=== PATIENT | male | born 1955 | race African-American/Black ===

== ENCOUNTER 2018-07-06 22:22 | Emergency (ER) | payer MEDICARE, SELFPAY ==
[2018-07-06 22:23] VITALS: BP 201/86; PULSE 69; RESP 16; TEMP 37.3; O2SAT 93; BMI 47.9
--- NOTE | 2018-07-06 22:37 | CT_ITS ---
STUDY: CT ABDOMEN AND PELVIS WITHOUT CONTRAST REASON FOR EXAM: Male, 62 years old. Flank pain RADIATION DOSAGE (If Supplied By Facility): CTDIvol = ( 24.18 ) mGy, DLP = ( 1280.61 ) mGycm TECHNIQUE: Transaxial images were obtained from the dome of the diaphragm to the symphysis pubis without oral contrast, and without intravenous contrast. Sagittal and coronal images were reconstructed. Individualized dose optimization techniques were used for this CT. COMPARISON: None. FINDINGS: Evaluation limited by lack of IV and oral contrast material. Atelectasis/scarring within the lungs. Calcified mediastinal structures likely prior granulomatous disease. Coronary artery calcifications are noted. Tiny pericardial effusion. Multiple calcifications within the liver nonspecific however likely prior granulomatous disease. There is no significant intrahepatic ductal dilatation identified. Otherwise the unenhanced liver appears grossly unremarkable. The gallbladder is contracted. There are multiple benign calcified granulomata of the spleen. Normal pancreas. Normal bilateral adrenal glands. Renal punctate calcification thought to be vascular in origin. No hydronephrosis identified. Normal visualized stomach. Normal small intestine. There are multiple colonic diverticula consistent with diverticulosis. The appendix is visualized and appears normal. There is diffuse atherosclerotic calcification of the abdominal aorta, without a demonstrated aneurysm. Cannot evaluate for dissection due to lack of IV contrast material. Nonspecific subcentimeter short axis mesenteric and retroperitoneal lymph nodes. Limited evaluation within the pelvis by streak artifact. The bladder does not appear distended. Bilateral fat-containing small inguinal hernias. There are diffuse degenerative changes of the visualized lumbar spine. Bilateral hip arthroplasties cause streak artifact within the pelvis. CT/Abdomen/Pelvis without Cont IMPRESSION: Diverticulosis without definitive CT evidence for diverticulitis. No hydronephrosis or nephrolithiasis. Evidence of prior granulomatous disease. Tiny pericardial effusion. Electronically Signed: Trace Salguero, at 23:25 EDT Tel , Service support ,
--- NOTE | 2018-07-06 22:50 | ED.DCSUM_ITS ---
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 Patient has a hard time recounting details even when asked direct questions. 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 Pain started in his back earlier today, later he started vomiting and is states that he is vomiting bile. Patient denies having any abdominal pain at all. He denies any pain radiating into his lower extremities. He is on Percocet and baclofen, he has chronic pain but the states you will have to ask him where it is. He states his chronic pain is mostly in his hips, when asked if it is in his back he states no not until today. He denies any thoracic symptoms. No known history of kidney stones. He does not give a straight answer when trying to assess whether his pain is lateralizing or not. He has had no syncopal episodes since this started. No known history of AAA. - Past Medical History (1) CVA (cerebral vascular accident) Status: Chronic (2) ICH (intracerebral hemorrhage) Status: Chronic (3) Hyperlipidemia Status: Chronic (4) Hypertension Status: Chronic (5) Osteoarthritis of right hip Status: Chronic Past Medical History - Allergies and Home Meds Allergies/Adverse Reactions: Allergies ibuprofen Allergy (Verified 07/06/18 22:29) Other NSAIDS (Non-Steroidal Anti-Inflamma Allergy (Verified 07/06/18 22:29) Unknown Primary Care Physician: NOT,DEFINED [NON-STAFF] - Surgical History: total hip arthroplasty - Right 11/17, left 06/17, tonsillectomy Lives: Spouse/ Significant Other Smoking Status: Former smoker - Family History Paternal Family History: Reports: Cancer - age 60 liver Maternal Family History: Reports: No pertinent history - alive age 75 Review of Systems ROS: Unable to Obtain - very limited eval due to stroke, one-word answers General: Denies: Chills, Fever Cardiovascular: Denies: Chest pain, Palpitations Respiratory: Denies: Dyspnea, Cough Gastrointestinal: Reports: Nausea, Vomiting. Denies: Abdominal pain, Diarrhea Musculoskeletal: Reports: Back pain, Extremity Pain - chronic, no worse/new Skin: Denies: Rash, Abscess Neurological: Reports: Weakness - chronic preexisting left sided weakness. De nies: Headache Physical Exam Vital Signs/Narrative: Vital Signs Temp Pulse Resp BP Pulse Ox 07/06/18 22:23 99.1 F 359 H 16 201/86 H 93 Pulse erroneous; on exam, ST at 111. General: Well nourished, Well developed, Obese - morbidly, limiting exam, which is also limited by the fact that even w/ 2 people helping to hold him up sitting, he cannot stay., No Acute Distress Head: Normocephalic, Atraumatic Eyes: Perrl, EOMI ENT: Moist mucous membranes, No rhinorrhea Neck: Supple, Nontender Cardiovascular: Regular rate, Regular rhythm, No murmurs, Tachycardia Respiratory: No distress, CTA bilaterally - within limits of exam, Chest nontender Abdomen: Soft, Nontender, Nondistended, Normal bowel sounds Back: Normal Inspection, CVA tenderness - bilat subjectively, - - diffusely tender bilat lumbar paraspinal.. Negative for: Spinal tenderness Extremities: Nontender, Edema - 1+ Skin: Normal color, No rash, No Trauma Neurological: Alert, Weakness - left side. LUE flexion contracture; able to move it. Psychological: - - flat affect. Diagnostic/Tx/Re-eval Impressions Abdomen/Pelvis CT 07/06/18 22:37 IMPRESSION: Diverticulosis without definitive CT evidence for diverticulitis. No hydronephrosis or nephrolithiasis. Evidence of prior granulomatous disease. Tiny pericardial effusion. Electronically Signed: Trace Salguero, at 23:25 EDT Tel , Service support , 07/06/18 22:37 CT Abd [Abdomen/Pelvis without Cont] [CT] Stat Laboratory Results 07/06/18 07/06/18 07/06/18 22:44 22:44 23:15 WBC 14.2 H RBC 5.04 Hgb 13.0 Hct 39.7 L MCV 78.8 L MCH 25.8 L MCHC 32.7 RDW 14.6 RDW Differential 41.5 Plt Count 285 MPV 9.7 Immature Gran % (Auto) 0.400 Neut % (Auto) 83.6 H Lymph % (Auto) 9.7 L [place] % (Auto) 6.0 Eos % (Auto) 0.2 Baso % (Auto) 0.1 Absolute Neuts (auto) 11.9 H Absolute Lymphs (auto) 1.38 Total Counted Not Reportable Sodium 134 L Potassium 5.6 H Chloride 98 Carbon Dioxide 32.0 Anion Gap 4 L BUN 10 Creatinine 0.87 Estim Creat Clear Calc 85.17 Est GFR (MDRD) Af Amer 114 Est GFR (MDRD) Non-Af 94 BUN/Creatinine Ratio 11.5 Glucose 169 H Calcium 8.9 Total Bilirubin 0.60 AST 53 H ALT 53 Alkaline Phosphatase 134 H Total Protein 8.3 H Albumin 3.8 Globulin 4.5 H Albumin/Globulin Ratio 0.8 L Lipase 254 Urine Color Yellow Urine Clarity Clear Urine pH 7.0 Ur Specific [place] 1.010 Urine Protein 100 H Urine Glucose (UA) 250 H Urine Ketones Negative Urine Occult Blood 150 H Urine Nitrite Negative Urine Bilirubin Negative Urine Urobilinogen Normal Ur Leukocyte Esterase Negative Urine RBC 0-5 SEEN Urine WBC 0 SEEN Ur Squamous Epith Cells 0 SEEN Urine Bacteria 0 SEEN Urine Mucus 0 SEEN - Rhythm Strip Rhythm Strip: Sinus Tach Rate: 111 Ectopy: None - Medical Decision Making Workup shows microscopic hematuria without infection, leukocytosis with a mild left shift, alkaline phosphatase is slightly elevated but normal total bilirubin. CT scan shows nothing acute. After morphine and Zofran with some IV fluids, she is feeling better. Back pain still present. Differential includes muscular discomfort along with vomiting because of the pain, or a kidney stone that he passed prior to imaging. Family states he has had contact with multiple family members with stomach flu recently, certainly that could be the case here as well. His exam is consistent with more of a muscular etiology. I think he is stable to be discharged home, given a prescription for Zofran in case his nausea returns, it is gone now after treatment. Advised to follow-up if symptoms persist. They are comfortable with this plan. ED Disposition - Plan for ED Patient: Disposition: Home or Assisted Living Diagnosis: Acute low back pain, Vomiting Instructions: ED Gastritis, ED Spasm Back No Trauma Prescriptions: Ondansetron [Zofran] 8 mg PO Q8H PRN PRN #12 tab PRN Reason: Nausea Referrals: Doctor,Your [STAFF PHYSICIAN] - 3-5 Days if not improving
[2018-07-06 23:05] LABS: Absolute Lymphocyte Count 1.38 X10^3/ul (0.83-4.51); Absolute Neutrophil Count 11.9 X10^3/uL (2.0-7.7); Basophil# 0.02 X10^3/uL; Basophil% 0.1 % (0-1); Eosinophil# 0.03 X10^3/uL; Eosinophils% 0.2 % (0-5); Hematocrit 39.7 % (40-54); Lymphocyte # 1.38 X10^3/ul (4.0); Lymphocyte % 9.7 % (19-41); Mean Corp Hgb Conc 32.7 g/gl (32-36); Mean Corpuscular Hgb 25.8 pg (27.0-32.0); Mean Corpuscular Volume 78.8 fL (80-94); Mean Platelet Vol. 9.7 fl (6.2-12.0); Monocyte# 0.86 X10^3/uL; Neutrophil # 11.89 X10^3/uL (2.7-7.7); Neutrophil % 83.6 % (47-70); Platelet Count 285 K/mm3 (150-450); RBC Distribution Width CV 14.6 % (11.6-14.6); RBC Distribution Width SD 41.5 fl (35.1-43.9); Red Blood Count 5.04 M/mm3 (4.6-6.2); White Blood Count 14.2 K/mm3 (4.4-11.0)
[2018-07-06] MEDS: 0.9% Normal Saline 1,000 ML 100 ML IV (23:07)
[2018-07-06] MEDS: Ondansetron 4 MG/2 ML Vial IV (23:07)
[2018-07-06] MEDS: Morphine 4 MG/ML Syringe IV (23:07)
[2018-07-06 23:09] LABS: POSITIVE COUNT NO; POSITIVE DIFFERENTIAL NO; POSITIVE MORPHOLOGY NO
[2018-07-06 23:19] LABS: Bacteria 0 SEEN /hpf (None Seen); Mucous, Urine 0 SEEN /hpf (<or=2+); Squamous Epithelial Cells - UA 0 SEEN /hpf (0-5); White Blood Cells 0 SEEN /hpf (0-5)
[2018-07-06 23:25] LABS: Color, Urine Yellow (Yellow); Glucose, Dipstick 250 mg/dl (Normal); Ketone-Dipstick Negative (Negative); Leukocyte Esterase-Dipstick Negative /ul (Negative); Nitrite-Dipstick Negative (Negative); Occult Blood-Urine 150 /ul (Negative); Protein-Dipstick 100 mg/dl (Negative); Urine Bilirubin Dipstick Negative (Negative); Urine Clarity Clear (Clear); Urine Urobilinogen Normal (Normal)
[2018-07-06 23:32] LABS: ALB/GLOB Ratio 0.8 RATIO (0.9-2.4); AST(SGOT) 53 U/L (15-37); Alanine Aminotransfer ALT/SGPT 53 U/L (16-61); Albumin, Serum 3.8 g/dL (3.2-5.0); Alkaline Phosphatase 134 U/L (45-117); Anion Gap 4 (5-15); BUN 10 mg/dL (7-18); BUN/Creat Ratio 11.5 RATIO (10-20); Calcium,Total 8.9 mg/dL (8.5-10.1); Chloride 98 mmol/L (98-107); Creatinine, Serum 0.87 mg/dL (0.70-1.30); EST Glomerular Filtration Rate 94 mL/min (>60); Est Glom Filt Rate - Afr Amer 114 mL/min (>60); Estimated Creatinine Clearance 85.17 ml/min; Globulin 4.5 g/dL (2.2-4.2); Glucose 169 mg/dL (74-106); Lipase 254 U/L (73-393); Potassium 5.6 mmol/L (3.5-5.1); Protein, Total 8.3 g/dL (6.4-8.2); Sodium Level 134 mmol/L (136-145)
[2018-07-06 23:33] VITALS: PULSE 102; RESP 18; O2SAT 96
[2018-07-07 00:01] LABS: Red Blood Cells-Urine 0-5 SEEN /hpf (0-5)
[2018-07-07 01:05] VITALS: BP 163/73; PULSE 102; RESP 18; O2SAT 96
== END 2018-07-07 01:36 | disposition home or self-care (01) ==
PROVIDERS: Emergency Provider Emergency Medicine
DX: K57.90 Diverticulosis of intestine, part unspecified, without perforation or abscess without bleeding (principal); G81.94 Hemiplegia, unspecified affecting left nondominant side; G89.29 Other chronic pain; E78.5 Hyperlipidemia, unspecified; I10 Essential (primary) hypertension; M16.11 Unilateral primary osteoarthritis, right hip; Z87.891 Personal history of nicotine dependence; Z79.899 Other long term (current) drug therapy; Z79.82 Long term (current) use of aspirin
CPT/HCPCS: 74176; 80053; 81001; 83690; 85025; 96361; 96374; 96375; 99285; J7030; A4216; J2405